=== PATIENT | male | born 1970 | race Caucasian/White ===

== ENCOUNTER 2017-01-02 22:13 | Emergency (ER) | payer OTHER ==
[~2017-01-02] VITALS: Ht 165.1 cm; Wt 97.3 kg
[2017-01-02 22:16] VITALS: Ht 165.1 cm; Wt 97.3 kg
[2017-01-02] MEDS ORDERED: IBUP-1050 PO (22:32)
[2017-01-02] MEDS ORDERED: SODIUM CHLORIDE 0.9% 1000ML 1,000 ML IV ONE ×2 (22:45)
[2017-01-02 23:09] LABS: BASO % 0.3 %; BASO ABS # 0.02 K/uL (0-0.2); COMPLETE YES; EOS % 2.9 %; HEMATOCRIT 42.5 % (42-52); IG% 0.2 %; LYMPH ABS # 2.49 K/uL (1.2-3.4); MEAN CELL VOLUME 84.8 fL (80-100); MEAN CORPUSCULAR HEMOGLOBIN 29.1 pg (25-34); MEAN CORPUSCULAR HGB CONC 34.4 g/dl (32-36); MEAN PLATELET VOLUME 8.9 fL (7.4-10.4); MONO % 5.9 %; NEUT % 47.7 %; PLATELET COUNT 204 K/uL (130-400); RED BLOOD COUNT 5.01 M/uL (4.7-6.1); WHITE BLOOD COUNT 5.79 K/uL (4.8-10.8)
[2017-01-02 23:30] LABS: BUN/CREATININE RATIO 12.9 (10-20); CALCIUM 8.2 mg/dl (8.5-10.1); CREATININE 0.92 mg/dl (0.60-1.40); MAGNESIUM 2.4 mg/dl (1.8-2.4); POTASSIUM 3.5 mmol/L (3.5-5.1)
[2017-01-02 23:35] LABS: URINE APPEARANCE CLEAR (CLEAR); URINE BILIRUBIN NEG (NEG); URINE COLOR YELLOW; URINE NITRITE NEG (NEG); URINE SPECIFIC GRAVITY 1.008 (1.000-1.030); UROBILINOGEN NEG (NEG); ZZUR CULT IF INDIC CLEAN CATCH NO
[2017-01-02 23:41] VITALS: TEMP 36.4
[2017-01-02 23:41] LABS: ALB/GLOB RATIO 1.1 (0.9-2); THYROID STIMULATING HORMONE 3.6 uIu/ml (0.300-4.500)
[2017-01-02 23:50] LABS: MANUAL MICROSCOPIC REQUIRED? NO; REVIEW REQ? NO
[2017-01-03 00:01] LABS: LYME DISEASE AB IGG NEG (NEG); LYME DISEASE AB IGM NEG (NEG)
[2017-01-03 00:43] VITALS: BP 123/77; PULSE 84; O2SAT 94
--- NOTE | 2017-01-03 00:57 | EMERGENCY ROOM VISIT NOTE ---
History First contact with patient: 22:30 Chief Complaint: SYNCOPE Stated Complaint: SYNCOPE Nursing Triage Summary: Pt reports syncopal episode tonight. Came in from garage, ate a cheesestick, became dizzy, diaphoretic. "the next thing I knew I was looking at the ceiling" . pt fell in bedroom, hit head. +loc 30-40 seconds. reports loss in memory since then. pt c/o head pain, fingertips hurt History of Present Illness The patient is a 46 year old male who presents to the Emergency Room with complaints of a single episode that occurred about one hour prior to arrival. The patient states that he was working all morning, came home, had a few beers, ate food and became dizzy and diaphoretic. The patient went into his bedroom where he had a witnessed syncopal episode. The patient did not have seizure- like activity with this episode, and he did have loss of consciousness for approximately 30 seconds. The patient was able to awake without difficulty and EMS was contacted. The patient does not recall the exact events around the syncopal episode. He does have a mild headache and feels thirsty. He does not have pain of his neck, chest, pelvis, or extremities. He rates his current discomfort a 6/10. Review of Systems More than 10 systems were reviewed and otherwise negative with the exception of history of present illness. Past Medical/Surgical History No chronic medical disease Family History No pertinent family history Social History Smoking Status: Never Smoker Housing Status: lives with family Occupation Status: employed Current/Historical Medications Scheduled Ibuprofen (Advil), 400 MG PO DAILY Allergies Coded Allergies: BEE STING (Verified Allergy, Severe, ANAPHYLAXIS, 10/17/15) Penicillins (Verified Allergy, Unknown, SWELLING, 10/17/15) Physical Exam Vital Signs Date Time Temp Pulse Resp B/P Pulse Ox O2 Delivery O2 Flow Rate FiO2 01/03/17 00:39 84 16 123/77 94 Room Air 01/02/17 23:41 36.4 76 16 117/83 97 Room Air 01/02/17 23:19 79 16 102/68 93 Room Air 01/02/17 23:05 Room Air 01/02/17 22:50 84 01/02/17 22:16 36.3 83 18 161/107 94 Room Air Physical Exam VITALS: Vitals are noted on the nurse's note and reviewed by myself. Vital signs stable. GENERAL: Well-developed, well-nourished, white male, who is in no acute distress and resting comfortably. Patient is cooperative with the examination. GCS 15. HEAD: Normocephalic atraumatic. EARS: External ear normal. External auditory canals clear, tympanic membranes pearly jensen without erythema or effusion bilaterally. EYES: Pupils equal round and reactive to light and accommodation. Conjunctivae without injection, sclerae without icterus. Extraocular movements intact. NOSE: Patent, turbinates without inflammation or discharge. MOUTH: Mucous membranes moist. Tonsils are not enlarged. Pharynx without erythema, blood, or exudate. Uvula midline. Airway patent. NECK: Supple without nuchal rigidity. No lymphadenopathy. No thyromegaly. Cervical spine is nontender. HEART: Regular rate and rhythm without murmurs gallops or rubs. LUNGS: Clear to auscultation bilaterally without wheezes, rales or rhonchi. No retractions or accessory muscle use. ABDOMEN: Positive normal bowel sounds x 4. Soft, nontender, without masses or organomegaly. No guarding or rebound tenderness. MUSCULOSKELETAL: No muscle atrophy, erythema, or edema noted. Full range of motion without joint tenderness in all extremities. No tenderness to palpation. Normal gait. Strength 5/5 throughout. NEURO: Patient was alert and oriented to person place and time. CN II through XII grossly intact. Deep tendon reflexes 2+ throughout. No focal neurological deficits SKIN: The skin was without rashes, erythema, edema, or bruising. Capillary reflex less than 2 seconds. Medical Decision & Procedures ER Provider Diagnostic Interpretation: Preliminary Findings Only See Final Report For Complete Findings CT HEAD: No acute intracranial abnormality. Laboratory Results 01/02/17 22:57 Red Blood Count 5.01, Mean Corpuscular Volume 84.8, Mean Corpuscular Hemoglobin 29.1, Mean Corpuscular Hemoglobin Concent 34.4, Mean Platelet Volume 8.9, Neutrophils (%) (Auto) 47.7, Lymphocytes (%) (Auto) 43.0, Monocytes (%) (Auto) 5.9, Eosinophils (%) (Auto) 2.9, Basophils (%) (Auto) 0.3, Neutrophils # (Auto) 2.76, Lymphocytes # (Auto) 2.49, Monocytes # (Auto) 0.34, Eosinophils # (Auto) 0.17, Basophils # (Auto) 0.02 01/02/17 22:57 Test 01/02/17 22:57 01/02/17 23:05 01/02/17 23:25 White Blood Count 5.79 K/uL (4.8-10.8) Red Blood Count 5.01 M/uL (4.7-6.1) Hemoglobin 14.6 g/dL (14.0-18.0) Hematocrit 42.5 % (42-52) Mean Corpuscular Volume 84.8 fL (80-100) Mean Corpuscular Hemoglobin 29.1 pg (25-34) Mean Corpuscular Hemoglobin Concent 34.4 g/dl (32-36) Platelet Count 204 K/uL (130-400) Mean Platelet Volume 8.9 fL (7.4-10.4) Neutrophils (%) (Auto) 47.7 % Lymphocytes (%) (Auto) 43.0 % Monocytes (%) (Auto) 5.9 % Eosinophils (%) (Auto) 2.9 % Basophils (%) (Auto) 0.3 % Neutrophils # (Auto) 2.76 K/uL (1.4-6.5) Lymphocytes # (Auto) 2.49 K/uL (1.2-3.4) Monocytes # (Auto) 0.34 K/uL (0.11-0.59) Eosinophils # (Auto) 0.17 K/uL (0-0.5) Basophils # (Auto) 0.02 K/uL (0-0.2) RDW Standard Deviation 39.9 fL (36.4-46.3) RDW Coefficient of Variation 13.1 % (11.5-14.5) Immature Granulocyte % (Auto) 0.2 % Immature Granulocyte # (Auto) 0.01 K/uL (0.00-0.02) Anion Gap 12.0 mmol/L (3-11) Est Creatinine Clear Calc Drug Dose 106.5 ml/min Estimated GFR () 114.4 Estimated GFR (Non- 98.7 BUN/Creatinine Ratio 12.9 (10-20) Calcium Level 8.2 mg/dl (8.5-10.1) Magnesium Level 2.4 mg/dl (1.8-2.4) Total Bilirubin 0.6 mg/dl (0.2-1) Aspartate Amino Transf (AST/SGOT) 24 U/L (15-37) Alanine Aminotransferase (ALT/SGPT) 42 U/L (12-78) Alkaline Phosphatase 77 U/L (45-117) Total Protein 7.7 gm/dl (6.4-8.2) Albumin 4.0 gm/dl (3.4-5.0) Globulin 3.7 gm/dl (2.5-4.0) Albumin/Globulin Ratio 1.1 (0.9-2) Lipase 125 U/L (73-393) Thyroid Stimulating Hormone (TSH) 3.600 uIu/ml (0.300-4.500) Ethyl Alcohol mg/dL 195.0 mg/dl (0-3) Lyme Disease IgG Antibody NEG (NEG) Lyme Disease IgM Antibody NEG (NEG) Bedside Troponin I 0.000 ng/ml (0-0.045) Urine Color YELLOW Urine Appearance CLEAR (CLEAR) Urine pH 5.0 (4.5-7.5) Urine Specific [place] 1.008 (1.000-1.030) Urine Protein NEG (NEG) Urine Glucose (UA) NEG (NEG) Urine Ketones NEG (NEG) Urine Occult Blood NEG (NEG) Urine Nitrite NEG (NEG) Urine Bilirubin NEG (NEG) Urine Urobilinogen NEG (NEG) Urine Leukocyte Esterase NEG (NEG) Medications Administered Medications (Trade) Dose Ordered Sig/Jerrica Route Start Time Stop Time Status Last Admin Dose Admin Sodium Chloride 1,000 ml @ 999 mls/hr Q1H1M ONCE IV 01/02/17 22:45 01/02/17 23:45 DC 01/02/17 23:09 999 MLS/HR Sodium Chloride (Nss 1000ml) 1,000 ml @ 999 mls/hr Q1H1M ONCE IV 01/02/17 22:45 01/02/17 23:45 DC 01/02/17 23:38 999 MLS/HR ED Course Physical exam and history were performed. Nursing notes and EMR were reviewed. Patient appears to have suffered a syncopal episode earlier today. On examination the patient appears well and does not have significant injury appreciated. IV access was established and labs were obtained. EKG was performed and was normal sinus rhythm at [address] elevation or evidence of ischemia. The patient was hydrated with normal saline and placed on a remote encoding center manager. CT scan of the head was performed. The patient was reevaluated multiple times with a course of his stay. He does not have a significant elevated white blood cell count, and others anemia, bandemia, or significant electrolyte imbalance. Lipase and transaminases are nondiagnostic. TSH is euthyroid state. Lyme disease screen is negative. Troponin 1 is negative. His alcohol is elevated at nearly 200, although he does not clinically appear intoxicated. The patient CT scan does not show an acute intracranial abnormality. The patient was monitored for several hours here in the emergency department without deterioration of his condition. He was able to ambulate, drink, use the bathroom without difficulty. I discussed the patient's workup with the patient and his family. I suspect the patient's symptoms are likely related to dehydration from working earlier today in the 90 weather. Combined with drinking beer tonight, the patient ultimately suffered a syncopal episode. I did explain to the patient that his symptoms could be related to a cardiac event , and he may need outpatient Holter or event monitor if symptoms continue. There is also a possibility that his symptoms may be related to his alcohol intoxication, and he was encouraged to discontinue drinking. The patient voiced understanding of this plan and was pleased. He rated his discomfort a 0/ 10 at the time of departure and was charged, the care of his family. The chart was completed utilizing [employer] Speech Voice Recognition Software. Grammatical errors, random word insertions, pronoun errors, and incomplete sentences are an occasional consequence of this system due to software limitations, ambient noise, and hardware issues. Any formal questions or concerns about the content, text, or information contained within the body of this dictation should be directly addressed to the provider for clarification. . Medical Decision Differential diagnosis: Etiologies such as vasovagal event, infection, hypoglycemia, electrolyte abnormalities, cardiac sources, intracerebral event, toxicologic, neurologic, as well as others were entertained. Impression Primary Impression: Syncope Departure Information Dispostion Home / Self-Care Condition GOOD Referrals Noel Florentino M.D.(LLOYD) (PCP) Forms HOME CARE DOCUMENTATION FORM, IMPORTANT VISIT INFORMATION Patient Instructions [facility] Additional Instructions You were seen and evaluated today on an emergency basis only. This is not a substitute for, or an effort to provide, complete comprehensive medical care. It is not possible to recognize and treat all injuries or illnesses in a single emergency department visit. For this reason it is recommended that you followup with your PCP on Thursday or Thursday this week for ongoing care and evaluation. Drink plenty fluids and remain well hydrated. Avoid substances such as nicotine, alcohol, caffeine, as these can exacerbate or cause your symptoms. You are welcome to return to the emergency department anytime with new, worsening, or concerning symptoms.
--- NOTE | 2017-01-03 05:46 | DIAGNOSTIC IMAGING REPORT ---
HEAD CT NONCONTRAST CT DOSE: 537.48 mGy.cm HISTORY: Mental status change Syncope. Head injury TECHNIQUE: Multiaxial CT images of the head were performed without the use of intravenous contrast. Comparison: None. Findings: The paranasal sinuses and mastoid air cells are clear. The calvarium and skull base are intact. The ventricles and sulci are within normal limits. There is no mass, hematoma, midline shift, or acute infarct. Impression: No acute intracranial abnormality. Electronically signed by: Mateo Almanzar M.D. 01/03/2017 5:45 AM Dictated Date/Time: 01/03/2017 5:44 AM
== END 2017-01-03 00:45 | disposition home or self-care (01) ==
LOC: C.EDB 22:14 → C.EDC 01-03 00:45
DX: R55 Syncope and collapse (principal); Z88.0 Allergy status to penicillin; Z91.030 Bee allergy status

== ENCOUNTER 2019-10-07 08:03 | Observation (INO) ==
--- NOTE | 2019-09-13 11:06 | Anesthesiology Consultation ---
Date of Service September 13, 2019 Assessment & Plan (1) Encounter for pre-operative examination: "Manolo" Chart Review Chart Review: Acceptable Risk for Surgery and Patient seen in Pre Admission Testing Teaching & Discussion Instructed NPO after midnight before surgery, except medications with 15 cc of water. Medication instructions provided according to the PAT guidelines. History Surgery Operation Date: 10/07/19 12:30 Proposed Procedures p Left Total Knee Replacement - Simon Samuels MD Height/Weight Height: 5 ft 5 in Weight: 119.2 kg Allergies Allergy/AdvReac Type Severity Reaction Status Date / Time bee venom protein (honey bee) Allergy Severe ANAPHYLAXIS Verified 09/13/19 08:23 Penicillins Allergy Severe throat Verified 09/13/19 08:23 swelling Medications Home Medications Medication Instructions Recorded Confirmed Last Taken ibuprofen 400 mg PO DAILY PRN 09/07/19 09/13/19 Unknown Past Medical History Medical History Bilateral primary osteoarthritis of knee Morbid obesity Exercise / Class Metabolic Activity II 4-5 Yardwork/Stairs/Walk up hill Past Family History Family History Other No family history of adverse response to anesthesia Past Surgical History Surgical History History of appendectomy S/P left knee arthroscopy 2015 [facility] #[facility] Past Anesthesia History No Hx of Anesthesia Complications and No Family Hx of Anesthesia Complications History of PONV No Hx of PONV and No Hx of Motion Sickness Social History Smoking Status: Never smoker Do You Dip or Chew Tobacco: Yes (1 can/2 days (advised NPO after midnight)) Hx Alcohol Use: Yes Alcohol type: beer and hard liquor alcohol intake frequency: 3 or more drinks per day (Evenings only) Hx Substance Use: No Review of Systems Pt denies any recent chest pain, shortness of breath, palpitations, cough, fever or URI. +mild cough, resolving Physical Exam Vital Signs BP: 117/80 P: 98bpm SPO2: 96% RA T: 98.2 F R: 16 ENMT Mouth: + dental restorations (few crowns) and + macroglossia; no chipped teeth and no loose teeth Thyromental Distance: > or= 3.5 Finger Breadths (3.5) Mallampati Class: III Neck + short neck, + thick neck and + facial hair (short goatee); neck extension not limited Respiratory normal respiratory effort Auscultation: lungs clear to auscultation bilaterally Cardiovascular Rate/Rhythm: regular rhythm and + tachycardic Heart Sounds: no murmur Vessels: no carotid bruit Testing Laboratory Results 09/13/19 11:05 09/13/19 11:05 PT 10.7 Seconds (9.0-12.0) 09/13/19 11:05 INR 1.0 (0.9-1.1) 09/13/19 11:05 APTT 26.2 Seconds (21.0-31.0) 09/13/19 11:05 Blood Type O Positive 09/13/19 11:05 Antibody Screen NEGATIVE 09/13/19 11:05 Electrocardiogram Date: 09/13/19 Findings: + NSR @ (90bpm) *unconfirmed
[2019-09-13 11:38] LABS: Basophils # (auto) 0.03 K/uL (0-0.2); Basophils % (auto) 0.4 %; Eosinophils # (auto) 0.26 K/uL (0-0.5); Eosinophils % (auto) 3.3 %; Hematocrit (blood only) 44.8 % (42-52); Hemoglobin 15.6 g/dL (14.0-18.0); Immature Granulocytes # (auto) 0.02 K/uL (0.00-0.02); Immature Granulocytes % (auto) 0.3 %; Lymphocytes # (auto) 2.77 K/uL (1.2-3.4); Lymphocytes % (auto) 34.7 %; Mean Corpuscular Hgb Conc 34.8 g/dL (32-36); Mean Corpuscular Volume 88.9 fL (80-100); Mean Platelet Volume 9.7 fL (7.4-10.4); Monocytes # (auto) 0.58 K/uL (0.11-0.59); Monocytes % (auto) 7.3 %; Neutrophils # (auto) 4.33 K/uL (1.4-6.5); Platelet Count 204 K/uL (130-400); RDW Coefficient of Variation 13.1 % (11.5-14.5); RDW Standard Deviation 42.5 fL (36.4-46.3); Red Blood Count 5.04 M/uL (4.7-6.1); White Blood Count 7.99 K/uL (4.8-10.8)
[2019-09-13 11:52] LABS: BUN Creatinine Ratio 12.4 (10-20); Calcium 9.3 mg/dl (8.5-10.1); Creatinine Clr Calc Pharmacy 102.6 ml/min; Est GFR (African American) 97.7; Est GFR (Non-African American) 84.3; Partial Thromboplastin Time 26.2 Seconds (21.0-31.0); Potassium 3.8 mmol/L (3.5-5.1); Prothrombin Time 10.7 Seconds (9.0-12.0)
--- NOTE | 2019-09-14 17:34 | Electrocardiogram Report ---
Test Reason : Blood Pressure : / mmHG Vent. Rate : 090 BPM Atrial Rate : 090 BPM P-R Int : 140 ms QRS Dur : 088 ms QT Int : 384 ms P-R-T Axes : 073 070 049 degrees QTc Int : 469 ms Normal sinus rhythm Normal ECG When compared with ECG of 02-JAN-2017 23:05, Borderline criteria for Anterior infarct are no longer Present Confirmed by Lion James ([id number]) on 09/14/2019 5:34:39 PM Referred By: Simon Samuels Confirmed By:Bladimir James
--- NOTE | 2019-10-01 09:50 | History and Physical Report ---
DATE: 10/07/2019 CHIEF COMPLAINT: Bilateral knee pain and discomfort, left side greater than right. HISTORY OF PRESENT ILLNESS: The patient is a 49-year-old gentleman who works for [employer] who presents for surgical treatment of his left knee. He has got a long history of bilateral knee pain and discomfort followed by my partner, Dr. Quan. I have seen him in the past as well and scoped his knee back in 2016. At that point, he had some moderate medial compartment arthritis and patellofemoral arthritis. I did a partial meniscectomy. He did okay for a while. Over the past 2 years, he has developed increased pain and discomfort in his knee. He has become more debilitating over time. He has had multiple injections which provided very temporary relief only. He is real active, he has difficulty walking for the next 2 days. He takes anti-inflammatories with minimal relief. He would like to have his left knee fixed. Of note, the patient does have a history of Lyme disease which was medically treated. PAST MEDICAL HISTORY: Significant for obesity with a BMI of 44. PAST SURGICAL HISTORY: Include: 1. Appendectomy. 2. Left knee arthroscopy on 10/17/2015. ALLERGIES: CODEINE, REACTIONS UNKNOWN. SOCIAL HISTORY: A 49-year-old male. He is from [place]. No significant smoking history. FAMILY HISTORY: Noncontributory. REVIEW OF SYSTEMS: Negative for diabetes, neurologic problem, vascular problems or bleeding disorders. No chest pain or shortness of breath. No history of DVT or PE. PHYSICAL EXAMINATION: GENERAL: Shows a pleasant, middle-aged male. Looks to be in pretty good health. HEENT: Benign. NECK: Supple, no lymphadenopathy. LUNGS: Clear to auscultation. HEART: Has a regular rate and rhythm. ABDOMEN: Soft, nontender, nondistended. EXTREMITIES: Grossly neurovascularly intact except as follows. Examination of left knee reveals patient ambulates independently. He does limp on the left side. He has got varus deformity to his left knee. He has got well-healed portal sites around his knee. He is tender over the medial joint line. Small knee effusion. Range of motion is 5 degrees short of full extension to 125 degrees of flexion. There is no instability. No pain with hip motion. X-RAYS: X-rays of the left knee reviewed. Shows advanced left knee medial compartment DJD. He has got complete loss of his medial joint space. He has got a varus deformity to his knee and osteophytes both medially and laterally as well as posteriorly. ASSESSMENT: A 49-year-old male with history of knee arthroscopy 4 years ago with left knee degenerative joint disease. He has failed conservative treatment and would like to have his left knee replaced. PLAN: We are going to take him to the operating room and do a left total knee replacement. The risks and benefits of this procedure were explained to the patient including but not limited to DVT, PE, , infection, neurological injury, vascular injury, bleeding problem, pain, limited range of motion, stiffness, failure to relieve symptoms, incomplete relief of symptoms, need for further surgery in future, fracture, leg length inequality, nerve palsy, persistent pain, etc. The patient understands and desires to proceed. Informed consent was obtained. As far as discharge plans, he is planning to be discharged to home using [facility] home health program.
[~2019-10-07 08:03] MED LIST: ACETAMINOPHEN 500 MG TAB PO SCH; BUPIVACAINE 0.5 % 5 MG/1 ML PF 10ML VIAL ONE; BUPIVACAINE LIPOSOME/PF 266 MG, BUPIVACAINE/EPINEPHRINE 50 ML, SODIUM CHLORIDE 0.9% 30 ... INFIL SCH; CEFAZOLIN 2000MG 2,000 MG/15 ML SYR IV SCH; FAMOTIDINE 20 MG TAB PO SCH; GABAPENTIN 900 MG DOSE PO SCH; LR 500ML BOLUS, THEN 15ML/HR IV SCH; LR 60ML/HR IV SCH; METOCLOPRAMIDE HCL 10 MG TABLET PO SCH; SCOPOLAMINE 1.5 MG TDSY TD SCH; TRANEXAMIC ACID 1,000 MG **IV Intra-op IV SCH
--- NOTE | 2019-10-07 08:38 | History & Physical Bridge Note ---
Date of Service October 07, 2019 History & Physical Bridge Note I have examined the patient, reviewed the History & Physical and in the interval since the performance of the History & Physical I have noted the following changes of clinical significance: no changes noted
[2019-10-07] MEDS ORDERED: LIDOCAINE HCL 2% 2 ML VIAL/AMP(20MG/ML) INFIL ONE (09:22)
[2019-10-07] MEDS ORDERED: MIDAZOLAM HCL 1 MG/ML 2ML VIAL ONE (09:22)
[2019-10-07] MEDS ORDERED: fentaNYL citrate 100 MCG/2 ML VIAL ONE (09:22)
[2019-10-07] MEDS ORDERED: ONDANSETRON INJ 2 MG/ML 2 ML VIAL ONE (09:22)
[2019-10-07] MEDS ORDERED: PROPOFOL IV EMULSION 10 MG/ML 20 ML VIAL IV ONE (09:22)
[2019-10-07] MEDS ORDERED: BACITRACIN INJ 50,000 UNIT VIAL ONE (10:53)
[2019-10-07] MEDS ORDERED: SODIUM CHLORIDE 0.9% PF 50 ML VIAL ONE (10:53)
[2019-10-07] MEDS ORDERED: BUPIVACAINE LIPOSOME 1.3% 266 MG/20 ML VIAL ONE (10:53)
[2019-10-07] MEDS ORDERED: BUPIVACAINE/EPINEPHRINE 0.25% 1:200,000 30 ML VIAL ONE (10:53)
[2019-10-07] MEDS ORDERED: ePHEDrine sulfate 50 MG/ML AMP IV PRN (12:24)
[2019-10-07] MEDS ORDERED: ATROPINE SULFATE 0.1 MG/ML 10ML SYR IV PRN (12:24)
[2019-10-07] MEDS ORDERED: fentaNYL citrate 100 MCG/2 ML VIAL IV PRN (12:24)
[2019-10-07] MEDS ORDERED: ONDANSETRON INJ 2 MG/ML 2 ML VIAL IV PRN ×2 (12:24→14:12)
--- NOTE | 2019-10-07 13:00 | Post Operative Brief Note ---
PG Immediate Post Op with CF Date of Surgery October 07, 2019 Pre & Post Diagnosis Operation Date: 10/07/19 10:40 Pre-Op Diagnosis: Left Knee Advanced Degenerative Joint Disease Post-Op Diagnosis: Left Knee Advanced Degenerative Joint Disease I identified the patient and participated in the time-out.: Yes Procedure Operation Date: 10/07/19 10:40 Actual Procedures p Left Total Knee Arthroplasty(Left) - Simon Samuels MD Surgeon Simon Samuels MD Home Economics Teacher Zoya, PAC Estimated Blood Loss 50 Findings Consistent with Post-Op Diagnosis Fluids 2000 cc Specimens Specimen Description: A. Left Knee Bone and Tissue Drains Quiroz Catheter (A 16 Spanish quiroz catheter was inserted by MORE [place], without difficulty, clear yellow urine obtained, output to be monitored by Anesthesia.) Anesthesia Type Spinal MAC Complications none Disposition Accompanied Patient To Recovery: No Disposition: Recovery Room
--- NOTE | 2019-10-07 13:13 | Operative Report ---
Post Operative Report Pre & Post Diagnosis Operation Date: 10/07/19 10:40 Pre-Op Diagnosis: Left Knee Advanced Degenerative Joint Disease Post-Op Diagnosis: Left Knee Advanced Degenerative Joint Disease I identified the patient and participated in the time-out.: Yes Procedure Operation Date: 10/07/19 10:40 Actual Procedures p Left Total Knee Arthroplasty(Left) - Simon Samuels MD Surgeon Simon Samuels MD [employer], PAC Estimated Blood Loss 50 Findings Consistent with Post-Op Diagnosis Operative findings revealed advanced left knee DJD with extensive grade 4 changes in the medial compartment as well as the patellofemoral compartment. There was spotty grade 4 changes laterally. He had a varus deformity to his knee with a flexion contracture of 10 degrees and a moderate to large knee joint effusion. Fluids 2000 cc. Specimens Left knee sent for pathology. Drains None. Anesthesia Type Spinal MAC Complications none Disposition Accompanied Patient To Recovery: No Disposition: Recovery Room Indications Patient is a 49-year-old gentleman is had a long history of left knee pain discomfort describes gotten worse over time. He did have a knee arthroscopy done 4 years ago which helped him for about 2 years notes about it. He continued to have progressive increasing left knee pain unresponsive conservative treatment. X-rays show progressive left knee arthritis. He elected proceed with total knee arthroplasty Description of Procedure Operative implants consist of: 1. Biomet Vanguard size 65 left posterior by femoral component. 2. Biomet size 71 tibial tray. 3. 10 mm posterior stabilized polyethylene insert. 4. 31 x 8 all poly-patella. Patient was taken to the operating room identified and placed in the operating table supine position protectors were properly padded. IV antibiotics arrived by anesthesia team. A spinal anesthetic and abductor canal block had provided in the holding area. Vines catheter was placed in sterile fashion. A left thigh turn was then placed in the left lower extremities and prepped and draped in usual sterile fashion. The left leg was elevated and exsanguinated with use of an Esmarch and turn was placed at 300 mmHg. An anterior approach to the left knee was then performed to longitudinal incision centered over the patella. Sharp dissection was carried through subcutaneous tissue down to the extensor mechanism. A medial parapatellar arthrotomy incision was made. Some subperiosteal dissection was carried out medially. The fat pad was resected from each patella tendon. Lateral patellofemoral ligament was released. Patella was subluxated laterally and the knee was flexed. The osteophytes were taken off the distal femur. The ACL and PCL were then released from distal femur the tibia subluxated anteriorly. The external tibial alignment jig was then placed the interface the tibia and adjusted 14 mm medially. Proximal tibial cut was made to remove about 2 mm of bone from most efficient aspect medial tibial plateau. Some osteophytes were taken off medial and posterior medially. The tibia was sized to a size 71. Attention was then drawn to the femur. The distal femur was entered with a sharp drop with intramedullary canal was suction. A left 6 degree valgus cutting guide was placed. Distal femoral cutting block was pinned in place. Distal femoral cut was made to take an additional 3 mm of bone off the distal femur. The femur was then sized to a size 65. The AP cutting block was pinned parallel to the epicondylar axis which was 6 degrees of external rotation. The anterior cut, anterior chamfer, posterior cut, posterior chamfer cuts were made. Box cutting guide was placed in just slight lateral box cut was made. The knee was flexed. The remnants of the medial lateral menisci were excised. The osteophytes were taken off the posterior aspect the femur. Trial femoral component was placed. The tibial tray was pinned in maximum external rotation and the drill and stem punch were used to create defect in proximal tip for the tibial tray. Knee was then trialed the 10 mm insert fit most appropriately. It was a little bit lax but I wanted to leave a little bit loose as he was fairly tight preoperatively. Atten tion drawn the patella. The patella was cleaned of all soft tissues. Patella thickness measured 22 mm in thickness was cut down to 14 but was sized to a size 31 patella. Locals were drilled for 31 patella. Lateral osteophytes removed. Patella button was placed. Knee was taken through range of motion patella tracked nicely with a no thumbs test. Attention drawn toward placing the permanent components. All trial implants were removed. A bone plug was placed in the distal femur to limit blood loss put a double batch [place] G cement was mixed. A Biomet Vanguard size 65 left posterior by femoral component, size 71 tibial tray, 10 mm posterior box polyethylene insert, and a 31 x 8 all poly-patella were then cemented in place. He was brought to full extension total cement hardened. F inal cement check was then performed. Pericapsular tissues were injected with total 100 cc of combination of 20 cc of Exparel, 30 cc normal saline, 50 cc of quarter percent Marcaine with epinephrine. Patient did receive 1 g of tranexamic acid. The tourniquet was then let down for final tourniquet time 62 minutes. Hemostasis assured use electrocautery. The wound was once again irrigated. The extensor mechanism closed with combination 1 PDS suture #1 Vicryl suture in [id number] fashion. Extensor mechanism checked found to be intact the subcutaneous tissue then closed with 2 Dexon suture in a buried interrupted fashion skin was closed skin mana. Leg was then cleaned dried and sterile dressed composed of Xeroform, 4 x 4's, sterile cast padding, Ozzy bandage were applied. Patient then transferred to the recovery room in stable condition. Patient tolerated procedure well no complications. I attest to the content of the Intraoperative Record and any orders documented therein. Any exceptions are noted below.
--- NOTE | 2019-10-07 13:49 | XRay Report ---
TWO VIEWS LEFT KNEE CLINICAL HISTORY: Postoperative examination. FINDINGS: AP and crosstable lateral portable views of the left knee are obtained. A left knee arthrop lasty is in near anatomic alignment. There has been undersurface remodeling of the patella. No acute fracture is seen. There are expected postoperative changes around the knee including skin clips, soft tissue edema, and subcutaneous gas. IMPRESSION: Expected postoperative changes status post left knee arthroplasty. No acute fracture is s een. ACT 112: Negative or not required by law. Electronically signed by: Torey Hsu M.D. 10/07/2019 1:48 PM
[2019-10-07] MEDS ORDERED: NALOXONE HCL 0.4 MG/1 ML VIAL/CARP IV PRN (14:12)
[2019-10-07] MEDS ORDERED: OXYCODONE HCL IR 5 MG TAB (IMMEDIATE RELEASE) PO PRN (14:12)
[2019-10-07] MEDS ORDERED: METOCLOPRAMIDE HCL INJ 5 MG/ML 2 ML VIAL IV PRN (14:12)
[2019-10-07] MEDS ORDERED: TAMSULOSIN HCL 0.4 MG CAP PO PRN (14:12)
[2019-10-07] MEDS ORDERED: ALUMINUM/MAGNESIUM SUSP 30 ML UDC PO PRN (14:12)
[2019-10-07] MEDS ORDERED: HYDROmorphone INJ 0.5 MG/0.5 ML SYR IV PRN (14:12)
[2019-10-07] MEDS ORDERED: MAGNESIUM HYDROXIDE SUSP 30 ML UDC PO PRN (14:12)
[2019-10-07] MEDS ORDERED: bisacodyL 10 MG SUPP PR PRN (14:12)
[2019-10-07] MEDS: CHECK SCOPOLAMINE PATCH PLACEMENT SCH (15:56)
[2019-10-07] MEDS: SODIUM CHLORIDE 0.9% 1000ML 1,000 ML IV SCH ×2 (15:56→20:53)
--- NOTE | 2019-10-07 16:01 | Anesthesiology Progress Note ---
Date of Service October 07, 2019 Anesthesia Post Procedure Vital Signs Vital Signs: Temp Pulse Pulse Resp BP Pulse Ox 10/07/19 15:00 97.7 F 72 16 99 10/07/19 14:30 96.6 F L 66 16 111/76 97 10/07/19 14:00 97.3 F L 70 18 111/75 97 10/07/19 13:45 61 14 102/65 97 10/07/19 13:30 97.3 F L 73 15 108/60 98 10/07/19 13:25 75 19 111/63 95 10/07/19 13:15 75 17 99/56 L 97 10/07/19 13:06 97.5 F L 82 13 97/55 L 97 10/07/19 13:00 97.3 F L 71 13 108/60 98 10/07/19 08:55 98.6 F 87 18 142/87 H 97 Pain Intensity Left Knee: Pain Intensity: 3 Transfer of Care Handoff Completed per policy Notes Mental Status: alert / awake / arousable and participated in evaluation Patient Amnestic to Procedure: Yes Nausea / Vomiting: adequately controlled Pain: adequately controlled Airway Patency, RR, SpO2: stable & adequate BP & HR: stable & adequate Hydration State: stable & adequate Neuraxial Anesthesia: was administered and sensory block is resolving Anesthetic Complications: no major complications apparent and Pt Satisfied with anesthetic care
[2019-10-07] MEDS: KETOROLAC 30 MG/ML VIAL IV SCH ×2 (16:03→20:39)
[2019-10-07] MEDS: ACETAMINOPHEN 500 MG TAB PO SCH ×2 (16:03→22:03)
[2019-10-07] MEDS: ASCORBIC ACID 500 MG TAB PO SCH (16:04)
[2019-10-07] MEDS: FERROUS GLUCONATE 324 MG TAB PO SCH (16:04)
--- NOTE | 2019-10-07 17:57 | Progress Note ---
DATE: 10/07/2019 SUBJECTIVE: A 49-year-old gentleman postop from a left knee replacement. He is doing well. Not having much pain at all. No chest pain or shortness of breath. Not feeling dizzy or lightheaded. OBJECTIVE: VITAL SIGNS: Temperature 36.3. Vital signs stable. GENERAL: Shows a pleasant, middle-aged male. He is sitting up in bed and looks pretty comfortable. LUNGS: Clear to auscultation. HEART: Regular rate and rhythm. ABDOMEN: Soft, nontender, nondistended. EXTREMITIES: Grossly neurovascularly intact except as follows. Examination of the left lower extremity reveals the dressing to be clean, dry and intact. Leg is well aligned. He can dorsiflex and plantarflex his foot appropriately. He is neurologically intact. X-RAYS: X-rays of the left knee from recovery room reviewed. It shows a left cemented posterior stabilized total knee arthroplasty. Components looked to be in good position. Some degree of lateral laxity which was appreciated intra-operatively. A little more on x-ray than I would have expected. Should close down with weightbearing. No signs of problems. ASSESSMENT: A 49-year-old gentleman postop from a left knee replacement, doing well. His pain is controlled. He is neurologically intact. PLAN: 1. DVT prophylaxis including thigh-high TEDs, SCDs, and aspirin twice a day. 2. PT/OT. Weight bear as tolerated. Left total knee protocol. 3. Pain control, doing pretty well with current pain regimen. 4. IV antibiotics x24 hours. 5. Disposition. He is planning to be discharged home with some home health once adequately recovered and medically stable. [facility]
[2019-10-07] MEDS ORDERED: TRANEXAMIC ACID / 0.7% NACL 1,000 MG/100 ML BAG IV SCH (19:04)
[2019-10-07] MEDS: CEFAZOLIN 2000MG 2,000 MG/15 ML SYR IV SCH (20:25)
[2019-10-07] MEDS: DOCUSATE SODIUM 100 MG CAP PO SCH (20:39)
[2019-10-07] MEDS: TAPENTADOL HCL ER 50 MG TABCR PO SCH (20:39)
[2019-10-07] MEDS: ASPIRIN 81 MG ECTAB PO SCH (20:39)
[2019-10-07] MEDS ORDERED: SENNA 8.6 MG TAB PO SCH (21:00)
[2019-10-08] MEDS: CHECK SCOPOLAMINE PATCH PLACEMENT SCH ×2 (01:18→07:52)
[2019-10-08] MEDS: CEFAZOLIN 2000MG 2,000 MG/15 ML SYR IV SCH (03:27)
[2019-10-08] MEDS: KETOROLAC 30 MG/ML VIAL IV SCH ×2 (03:27→07:53)
[2019-10-08] MEDS: ACETAMINOPHEN 500 MG TAB PO SCH (05:51)
[2019-10-08 06:02] LABS: Hematocrit (blood only) 38.6 % (42-52); Hemoglobin 13.3 g/dL (14.0-18.0); Mean Corpuscular Hemoglobin 30.6 pg (25-34); Mean Corpuscular Hgb Conc 34.5 g/dL (32-36); Mean Corpuscular Volume 88.9 fL (80-100); Mean Platelet Volume 9.9 fL (7.4-10.4); Platelet Count 175 K/uL (130-400); RDW Coefficient of Variation 13.2 % (11.5-14.5); RDW Standard Deviation 43.2 fL (36.4-46.3); Red Blood Count 4.34 M/uL (4.7-6.1); White Blood Count 6.72 K/uL (4.8-10.8)
[2019-10-08 06:40] LABS: BUN Creatinine Ratio 8.6 (10-20); Calcium 8.4 mg/dl (8.5-10.1); Creatinine Clr Calc Pharmacy 103.5 ml/min; Est GFR (African American) 100.1; Est GFR (Non-African American) 86.3; Potassium 3.9 mmol/L (3.5-5.1)
[2019-10-08] MEDS: ASPIRIN 81 MG ECTAB PO SCH (07:53)
[2019-10-08] MEDS: DOCUSATE SODIUM 100 MG CAP PO SCH (07:53)
[2019-10-08] MEDS: ASCORBIC ACID 500 MG TAB PO SCH (07:53)
[2019-10-08] MEDS: FERROUS GLUCONATE 324 MG TAB PO SCH (07:53)
[2019-10-08] MEDS: TAPENTADOL HCL ER 50 MG TABCR PO SCH (07:55)
[2019-10-08] MEDS ORDERED: MULTIVITAMIN TAB PO SCH (09:00)
--- NOTE | 2019-10-08 09:17 | Progress Note ---
DATE: 10/08/2019 SUBJECTIVE: A 49-year-old gentleman postop day 1 from a left knee replacement. He is doing well. Pain is controlled. Had a pretty good night. No chest pain or shortness of breath. Not feeling dizzy or lightheaded. OBJECTIVE: VITAL SIGNS: Temperature 36.7. Vital signs are stable. GENERAL: Shows a pleasant, middle-aged male. He is sitting up in bed, looks comfortable. EXTREMITIES: Examination of the left leg reveals the dressing to be clean and dry. Leg is well aligned. He can dorsiflex and plantarflex his foot appropriately. He is neurologically intact. LABORATORY DATA: Hemoglobin is 13.3. Hematocrit 38.6. Electrolytes are stable. ASSESSMENT: A 49-year-old gentleman postoperative day 1 from a left knee replacement, doing pretty well. Pain is controlled. He is neurologically intact. PLAN: 1. DVT prophylaxis including thigh-high TEDs, SCDs, and aspirin. 2. Pain control, doing pretty well with current pain regimen. 3. PT/OT. Weight bear as tolerated. Left total knee protocol. 4. Disposition: Plan to discharge to home with home health if his pain is controlled and he is getting around safely.
--- NOTE | 2019-10-11 15:15 | Discharge Summary ---
ADMITTING PHYSICIAN AND SURGEON: Dr. Simon Samuels. ADMITTING DIAGNOSIS: Left knee degenerative joint disease. SURGERY PERFORMED: Left total knee arthroplasty. SECONDARY DIAGNOSIS: Obesity. CONSULTS: None obtained. HISTORY AND PHYSICAL EXAMINATION: Well documented in the patient's chart. HOSPITAL COURSE: The patient was admitted on 10/07/2019, underwent total knee arthroplasty, tolerated the procedure well. There were no complications. He was transferred to the PACU postop and later to the orthopedic floor for further care. He was given Ancef for antibiotic prophylaxis, JOSE GUADALUPE stockings, SCDs and aspirin for DVT prophylaxis. Hemoglobin, hematocrit and vital signs were monitored during his hospital stay and remained stable, did not require any blood transfusions. There were no complications. On postoperative day 1, he was tolerating a regular diet, pain was controlled with oral pain medicine. He was participating in physical therapy. Postop day 1, he was discharged home, set up with home health services, given printed discharge instructions including new prescriptions for extra strength Tylenol, aspirin and oxycodone. Continue his home medications, continue physical therapy, weightbearing as tolerated, JOSE GUADALUPE stockings. Follow up approximately 2 weeks postop or sooner if there are any problems or concerns.
== END 2019-10-08 12:07 | disposition home health service (06) ==
LOC: ASU 08:03 → 3E 08:03